=== PATIENT | female | born 1995 | race Caucasian/White ===

== ENCOUNTER 2017-06-23 19:24 | Emergency (ER) | payer OTHER ==
[~2017-06-23] VITALS: Ht 170.2 cm; Wt 64.6 kg
[2017-06-23 21:00] LABS: SERUM ETHYL ALCOHOL < 10 mg/dL
[2017-06-23 21:09] LABS: QUANTITATIVE HCG < 4.0 MIU/ML
[2017-06-23 22:44] VITALS: BP 119/79
[2017-06-25 10:20] LABS: TREPONEMA ANTIBODY NEGATIVE (NEGATIVE)
[2017-06-26 13:02] LABS: CHLAMYDIA TRACHOMATIS NEGATIVE; NEISSERIA GONORRHOEAE NEGATIVE
== END 2017-06-23 22:45 | disposition home or self-care (01) ==
LOC: EME 19:24
PROVIDERS: Emergency Medicine
DX: T76.21XA Adult sexual abuse, suspected, initial encounter (principal); F17.200 Nicotine dependence, unspecified, uncomplicated; F10.10 Alcohol abuse, uncomplicated
CPT/HCPCS: 84702; 86780; 87491; 87591; 99281; 99285; G0480; J0696